=== PATIENT | male | born 1985 | race Caucasian/White ===

== ENCOUNTER 2024-06-14 23:55 | Emergency (ER) | payer BC ==
[~2024-06-14] VITALS: Ht 175.3 cm; Wt 78.0 kg
[2024-06-15 00:03] VITALS: TEMP 98.6; O2SAT 98
[2024-06-15] MEDS: LEVETIRACETAM 1000MG PREMIX 100 ML IV ONE (01:06)
[2024-06-15 02:22] LABS: BASOPHILS % 1.2 % (0.0-2.0); DIFFERENTIAL COMMENT 0; EOSINOPHILS % 0.1 % (0.0-5.0); HEMATOCRIT. 30.7 % (42.0-52.0); HEMOGLOBIN. 10.5 g/dL (14.0-18.0); LYMPHOCYTES % 8.7 % (20.0-50.0); MEAN CORPUSCULAR HEMOGLOBIN 32.8 pg (28.0-32.0); MEAN CORPUSCULAR HGB CONC 34.2 g/dL (31.0-37.0); MEAN PLATELET VOLUME 8.3 fl (7.4-10.4); MONOCYTES % 8.2 % (2.0-8.0); NEUTROPHILS % 81.8 % (40.0-76.0); PLATELET 129 x1000/uL (130-400); RED CELL DISTRIBUTION WIDTH 18.3 % (11.6-14.6); WHITE BLOOD COUNT 4.1 x1000/uL (4.5-11.0)
[2024-06-15 02:39] LABS: CHLORIDE 94 mEq/L (98-107); SODIUM 139 mEq/L (136-145)
[2024-06-15] MEDS ORDERED: KEPP500 MT (02:39)
[2024-06-15 02:40] LABS: CARBON DIOXIDE 30 mEq/L (21-32)
[2024-06-15 02:45] LABS: GLUCOSE 108 mg/dL (70-105); UREA NITROGEN BLOOD 7 mg/dL (9-23)
[2024-06-15 02:46] LABS: TROPONIN I HIGH SENSITIVITY 4 ng/L (3.0-53)
[2024-06-15 04:08] LABS: ETHANOL BLOOD < 10 mg/dL (<10)
[2024-06-15 04:14] LABS: POTASSIUM 2.1 mEq/L (3.5-5.1)
[2024-06-15] MEDS: MAGNESIUM 2 G PREMIX 50 ML IV ONE (04:25)
[2024-06-15] MEDS: KCL 20MEQ/100ML PREMIX 100 ML IV ONE (04:25)
[2024-06-15] MEDS: POTASSIUM CHLORIDE 20MEQ/PACKET PO ONE (04:26)
[2024-06-15 06:33] VITALS: BP 139/95; PULSE 80; RESP 12; O2SAT 98
== END 2024-06-15 06:35 | disposition home or self-care (01) ==
LOC: EDBD 23:55 → ER 23:55
DX: R56.9 Unspecified convulsions (principal); I10 Essential (primary) hypertension; E78.00 Pure hypercholesterolemia, unspecified; Z88.6 Allergy status to analgesic agent
CPT/HCPCS: 99285; 80048; 80320; 85025; 84484; 36415; 71045; 70450; 93005; 96367; 96368; 96365; 96366; J1953; J3475; J3480; Z7610 ×3; G0480